=== PATIENT | female | born 1985 ===

== ENCOUNTER 2016-10-24 09:20 | Emergency (ER) | payer BC, OTHER ==
[2016-10-24 10:53] VITALS: BP 101/63
--- NOTE | 2016-10-24 11:01 | UC ---
Throat Pain/Nasal Bear HPI - HPI Summary HPI Summary: complaint of cough and nasal congestion that started 4 days ago cough is worse at night fever on the first night of 101 denies sore throat and ear pain denies muscle and joint achiness denies N/V/D denies headache, vaginal discharge and edema took some tylenol with relief of fever used albuterol last night without relief - History of Current Complaint Chief Complaint: UCRespiratory Stated Complaint: COUGH/PREG-19 WKS Hx Obtained From: Patient Hx Last Menstrual Period: 06/12/16 - Allergies/Home Medications Allergies/Adverse Reactions: Allergies Allergy/AdvReac Type Severity Reaction Status Date / Time Sumatriptan [From Imitrex] Allergy Severe Swelling Verified 10/24/16 10:37 Of Face,Lips,& Throat Home Medications: Home Medications Acetaminophen TAB* [Tylenol TAB*] 650 mg PO Q4H PRN 10/24/16 [History Confirmed 10/24/16] Albuterol HFA INHALER* [Ventolin HFA Inhaler*] 2 puff INH Q4H PRN 10/24/16 [ History Confirmed 10/24/16] Vitamin TAB* 1 tab PO DAILY 10/24/16 [History Confirmed 10/24/16] PMH/Surg Hx/FS Hx/Imm Hx Previously Healthy: Yes - 19 weeks Respiratory History: Asthma - Surgical History Surgical History: Yes Surgery Procedure, Year, and Place: heart - Social History Alcohol Use: None Substance Use Type: None Smoking Status (MU): Never Smoked Tobacco Review of Systems Constitutional: Fever Skin: Negative Eyes: Negative ENT: Nasal Discharge Respiratory: Cough Cardiovascular: Negative Gastrointestinal: Negative Genitourinary: Negative Motor: Negative Neurovascular: Negative Musculoskeletal: Negative Neurological: Negative Psychological: Negative All Other Systems Reviewed And Are Negative: Yes Physical Exam Triage Information Reviewed: Yes Appearance: No Pain Distress, Well-Nourished Vital Signs: Initial Vital Signs Temp 98.9 F 10/24/16 10:39 Pulse 80 10/24/16 10:39 Resp 16 10/24/16 10:39 BP 101/63 10/24/16 10:39 Pulse Ox 100 10/24/16 10:39 Vital Signs Reviewed: Yes Eyes: Positive: Conjunctiva Clear ENT: Positive: Pharyngeal erythema, Nasal congestion, Nasal drainage, TMs normal. Negative: TM red, Tonsillar swelling, Tonsillar exudate Neck: Positive: No Lymphadenopathy Respiratory: Positive: Lungs clear, Normal breath sounds, No respiratory distress, No accessory muscle use Cardiovascular: Positive: RRR, No Murmur, Pulses Normal Abdomen Description: Positive: Nontender, Soft, Other: - FHT- rate 150-160 Bowel Sounds: Positive: Present Musculoskeletal: Positive: No Edema Neurological: Positive: Alert Psychological Exam: Normal Skin Exam: Normal Throat Pain/Nasal Course/Dx - Course Course Of Treatment: exam completed. FT normal. no indication for antibiotic- viral illness- supportive care only - Differential Dx/Diagnosis Differential Diagnosis/HQI/PQRI: URI Provider Diagnoses: URI Discharge - Discharge Plan Condition: Stable Disposition: HOME Patient Education Materials: Upper Respiratory Infection (ED), (ED) Referrals: Non Staff,Doctor [Primary Care Provider] - [facility] [place] [facility] [Outside] Additional Instructions: Please start using your albuterol inhaler or robitussin for uncontrolled coughing or shortness of breath Increase fluids and rest Take acetaminophen for fever or pain Please review your discharge instructions. If your symptoms do not improve please call your primary care provider or return to urgent care.
== END 2016-10-24 11:22 | disposition home or self-care (01) ==
LOC: UCCORT 09:20
DX: O26.892 Other specified pregnancy related conditions, second trimester (principal); J06.9 Acute upper respiratory infection, unspecified; Z3A.19 19 weeks gestation of pregnancy
CPT/HCPCS: 99201; G0463